=== PATIENT | male | born 2000 | race Caucasian/White ===

== ENCOUNTER 2021-09-27 13:50 | Emergency (ER) | payer BC, SELFPAY ==
--- NOTE | ~2021-09-27 | CT_ITS ---
EXAMINATION: CT abdomen pelvis w con INDICATION: Right flank pain TECHNIQUE: Computed tomographic images of the abdomen and pelvis were obtained after the administrati on of 100 cc of Omnipaque 350 intravenous contrast. The dose-length product (DLP) was 403.34 mGy-cm. Automated exposure control and iterative reconstruction technique were employed. COMPARISON: None available FINDINGS: The lung bases are clear. The heart size is normal. Punctate calcifications in an otherwise normal spleen likely represent healed granulomatous disease. The liver, pancreas, gallbladder, and a drenal glands are normal. There is a 4 mm stone of the proximal right ureter which causes mild hydron ephrosis. No stones are identified in the kidneys, the left ureter, or the bladder. No pathologically enlarged abdominal or pelvic lymph nodes are identified. There is no free intraperitoneal gas or lisa dence of bowel obstruction. The appendix is normal. The visualized osseous structures are unremarkabl e. A moderate volume of colonic stool is present. IMPRESSION: 1. 4 mm stone of the proximal right ureter causing mild hydronephrosis. Reviewed, dictated and finalized at location A. [employer]
[2021-09-27 14:03] VITALS: BP 171/83; PULSE 72; RESP 18; TEMP 36.5; O2SAT 100
[2021-09-27 14:19] LABS: Basophils Percent Auto 0.3 % (0.2-1.2); Eosinophils Absolute Auto 0.1 K/mm3 (0-0.3); Eosinophils Percent Auto 0.8 % (0-4.4); Hematocrit 45.8 % (42.0-52.0); Hemoglobin 15.2 g/dL (14.0-18.0); Immature Granulocyte Absolute 0.04 K/mm3 (0.00-0.031); Immature Granulocyte Percent A 0.4 % (0-0.5); Lymphocytes Absolute Auto 1.61 K/mm3 (0.9-3.2); Lymphocytes Percent Auto 15.5 % (18.3-44.2); Mean Corpuscular HGB Conc 33.2 g/dl (32-36); Mean Corpuscular Hemoglobin 28.8 pg (26-34); Mean Corpuscular Volume 86.9 fl (80-100); Mean Platelet Volume 10.3 fl (7.4-10.4); Monocytes Absolute Auto 0.7 K/mm3 (0.1-0.6); Monocytes Percent Auto 6.9 % (2.6-8.5); Neutrophils Absolute Auto 7.9 K/mm3 (1.3-6.7); Neutrophils Percent Auto 76.1 % (45.5-73.1); Platelet Count Result 303 k/mm3 (150-375); Red Blood Count 5.27 M/mm3 (4.6-6.20); Red Cell Distribution Width 12.9 % (11.5-14.5); White Blood Count 10.4 K/mm3 (4.5-10.0)
[2021-09-27 14:27] LABS: Add Urine Microscopic? YES; Appearance Urine Clear (Clear); Bilirubin Urine Negative (Negative); Blood Urine 2+ (Negative); Color Urine Yellow (Yellow); Glucose Urine UA Negative (Negative); Ketones Urine Negative (Negative); Leukocyte Esterase Ur Negative LEU/UL (Negative); Mucus Urine Rare /lpf; Nitrate Urine Negative (Negative); Protein Urine Negative (Negative); RBC Urine 21-50 /hpf (0-2); Specific Grav Ur 1.013 (1.001-1.035); Squamous Epithelial Cell Urine Rare /hpf (Few); Urobilinogen Urine Negative mg/dL (<2.0); WBC Urine 0-3 /hpf
[2021-09-27 14:30] LABS: Alanine Aminotransferase 28 U/L (4-50); Albumin Level 5.1 g/dL (3.5-5.1); Alkaline Phosphatase 79 U/L (38-126); Anion Gap 10 mmol/L (8-16); Aspartate Amino Transferase 32 U/L (17-59); Bilirubin,Total 0.7 mg/dL (0.2-1.3); Blood Urea Nitrogen 14 mg/dL (9-20); Calcium 9.7 mg/dL (8.4-10.2); Carbon Dioxide 27 mmol/L (22-30); Chloride 105 mmol/L (98-107); Estimated CRCL calculation 125 ml/min; Estimated Glomerular Filt Rate > 60; Glucose 89 mg/dL (65-110); Potassium 4.1 mmol/L (3.4-5.0); Sodium 142 mmol/L (137-145)
--- NOTE | 2021-09-27 16:36 | ED.BACK ---
HPI - Back Pain/Injury General Chief Complaint: Back Pain/Injury <Jose See MD - Last Filed: 09/27/21 16:41> Stated Complaint: FLANK/ABD PAIN <Jose See MD - Last Filed: 09/27/21 16:41> Time Seen by Provider: 09/27/21 16:00 <Jose See MD - Last Filed: 09/27/21 16:41> Source: patient <Jose See MD - Last Filed: 09/27/21 16:41> Mode of arrival: ambulatory <Jose See MD - Last Filed: 09/27/21 16:41> Limitations: no limitations <Jose See MD - Last Filed: 09/27/21 16:41> History of Present Illness HPI Narrative: 21-year-old male Healthy Complains of 4 days of intermittent right back, flank, and abdomen pains Initially began just when he rolled over in bed but subsequent episodes have not been triggered by anything and usually last about 30 minutes Some of them quite severe He does not note any nausea or vomiting, any dysuria or urinary frequency, or hematuria <Jose See MD - Last Filed: 09/27/21 16:41> Related Data Allergies/Adverse Reactions: Allergies Allergy/AdvReac Type Severity Reaction Status Date / Time No Known Allergies Allergy Verified 09/27/21 16:54 <Jose See MD - Last Filed: 09/27/21 16:41> Review of Systems Review of Systems: All systems reviewed & are unremarkable except as noted in HPI and below <Jose See MD - Last Filed: 09/27/21 16:41> Constitutional: Constitutional: Reports no additional constitutional complaints, Denies chills, Denies fever(s) and Denies headache(s) <Jose See MD - Last Filed: 09/27/21 16:41> ENT: Denies headache(s) <Jose See MD - Last Filed: 09/27/21 16:41> Cardiovascular: Cardiovascular: Denies chest pain and Denies dyspnea <Jose See MD - Last Filed: 09/27/21 16:41> Respiratory: Respiratory: Denies cough and Denies dyspnea <Jose See MD - Last Filed: 09/27/21 16:41> Gastrointestinal: Gastrointestinal: Reports abdominal pain, Denies diarrhea and Denies vomiting <Jose See MD - Last Filed: 09/27/21 16:41> Genitourinary: Genitourinary: Denies dysuria and Denies urinary frequency <Jose See MD - Last Filed: 09/27/21 16:41> Comments: Positive flank pain <Jose See MD - Last Filed: 09/27/21 16:41> Musculoskeletal: Musculoskeletal: Denies myalgias, Denies deformity and Denies numbness <Jose See MD - Last Filed: 09/27/21 16:41> Integumentary/Breasts: Skin/Breast: Denies rash and Denies wounds <Jose See MD - Last Filed: 09/27/21 16:41> Neurologic: Denies headache(s), Denies focal weakness and Denies numbness <Jose See MD - Last Filed: 09/27/21 16:41> Psychiatric: Psychiatric: Reports no additional psychiatric complaints <Jose See MD - Last Filed: 09/27/21 16:41> Endocrine: Endocrine: Reports no additional endocrine complaints <Jose See MD - Last Filed: 09/27/21 16:41> Hematologic/Lymphatic: Hematologic/Lymphatic: Reports no additional hematologic/lymphatic complaints <Jose See MD - Last Filed: 09/27/21 16:41> Allergic/Immunologic: Allergic/Immunologic: Reports no additional allergic/immunologic complaints <Jose See MD - Last Filed: 09/27/21 16:41> Exam Const: General: cooperative and no acute distress <Jose See MD - Last Filed: 09/27/21 16:41> Orientation/consciousness: patient oriented x3 (alert) <Jose See MD - Last Filed: 09/27/21 16:41> HENMT: Head: normal to inspection, normocephalic and atraumatic <Jose See MD - Last Filed: 09/27/21 16:41> Ears: external ears normal <Jose See MD - Last Filed: 09/27/21 16:41> General nose exam: no epistaxis <Jose See MD - Last Filed: 09/27/21 16:41> Eyes: Conjunctivae: conjunctivae normal <Jose See MD - Last Filed: 09/27/21 16:41> EOM: EOMs intact bilaterally <Jose See MD - Last Filed: 09/27/21 16:41> Neck: Neck: normal visual inspection, supple and no JVD <Jose See MD - Last Filed
[2021-09-27 16:51] VITALS: BP 148/86; PULSE 79; RESP 18; TEMP 36.9; O2SAT 100
[2021-09-27 19:42] VITALS: BP 129/81; PULSE 69; RESP 16; TEMP 36.9; O2SAT 100
== END 2021-09-27 19:45 | disposition home or self-care (01) ==
PROVIDERS: Emergency Medicine; Emergency Provider Family Medicine
DX: N13.2 Hydronephrosis with renal and ureteral calculous obstruction (principal)
CPT/HCPCS: 36415; 74177; 80053; 81001; 85025; 99284; Q9967